=== PATIENT | female | born 1970 | race American Indian/Alaskan Native ===

== ENCOUNTER 2021-10-05 09:00 | Emergency (ER) | payer OTHER ==
--- NOTE | 2021-10-05 12:03 | XRay Report ---
XR hip 2-3V LT, XR ankle 3+V LT, XR foot 3+V LT INDICATION / CLINICAL INFORMATION: fall, left hip pain. COMPARISON: None available. FINDINGS: Spiral fracture of the left lateral malleolus extending to the level of the tibiofibular articulation . Medial malleolus is preserved. No hip fracture. No definite fracture. Impression: 1. Holder type B left lateral malleolus fracture. Signer Name: Pancho Elliott MD Signed: 10/05/2021 11:58 AM Workstation Name: [id number]
[2021-10-05] MEDS ORDERED: HYDROcodone/ACETAMINOPHEN 5-325 MG TAB PO ONE (12:08)
--- NOTE | 2021-10-05 12:14 | Emergency Department Report ---
ED Lower Extremity HPI - General Chief Complaint: Extremity Injury, Lower Stated Complaint: LEFT ANKLE INJURY Time Seen by Provider: 10/05/21 10:15 Source: patient Mode of arrival: Wheelchair Limitations: No Limitations - History of Present Illness Initial Comments: Patient is a 51-year-old female presents emergency room complaints of a fall that occurred last night. She states that she fell down approximately 7 steps. She states that she slipped and fell while coming down the steps. She states that her left leg fell back behind her and she did a split. She is complaining of left ankle pain and left hip pain. She denies any loss of consciousness, vomiting, vision changes, numbness, weakness, bowel or bladder incontinence. She denies any medication allergies. PMHx HTN, CHF, HLD. - Related Data Previous Rx's Medication Instructions Recorded Last Taken Type HYDROcodone/APAP 5-325 [Sutter 1 each PO Q6HR PRN #12 tablet 10/05/21 Unknown Rx 5/325] Ibuprofen [Motrin 600 MG tab] 600 mg PO Q8H PRN #20 tablet 10/05/21 Unknown Rx Losartan [Cozaar] 25 mg PO BID 30 Days #60 tablet 10/05/21 Unknown Rx Allergies Allergy/AdvReac Type Severity Reaction Status Date / Time No Known Allergies Allergy Verified 10/05/21 09:09 ED Review of Systems ROS: Stated complaint: LEFT ANKLE INJURY Other details as noted in HPI Comment: All other systems reviewed and negative ED Past Medical Hx - Past Medical History Previous Medical History?: No - Surgical History Past Surgical History?: No - Medications Home Medications: Home Medications Medication Instructions Recorded Confirmed Last Taken Type HYDROcodone/APAP 5-325 [Sutter 1 each PO Q6HR PRN #12 tablet 10/05/21 Unknown Rx 5/325] Ibuprofen [Motrin 600 MG tab] 600 mg PO Q8H PRN #20 tablet 10/05/21 Unknown Rx Losartan [Cozaar] 25 mg PO BID 30 Days #60 tablet 10/05/21 Unknown Rx ED Physical Exam - General Limitations: No Limitations General appearance: alert, in no apparent distress - Head Head exam: Present: atraumatic, normocephalic - Eye Eye exam: Present: normal appearance - ENT ENT exam: Present: mucous membranes moist - Extremities Exam Extremities exam: Present: other (edema and ttp to the left lateral malleolus, decreased ROM secondary to pain, mild ttp to the left lateral hip, neurovascularly intact) - Neurological Exam Neurological exam: Present: alert, oriented X3 - Psychiatric Psychiatric exam: Present: normal affect, normal mood - Skin Skin exam: Present: warm, dry, intact ED Course Vital Signs 10/05/21 10/05/21 09:08 13:31 Temperature 97.5 F L 97.6 F Pulse Rate 91 H 91 H Respiratory 20 18 Rate Blood Pressure 195/119 Blood Pressure 189/133 [Right] O2 Sat by Pulse 100 100 Oximetry ED Lower Extremity MDM - Lab Data Vital Signs 10/05/21 10/05/21 09:08 13:31 Temperature 97.5 F L 97.6 F Pulse Rate 91 H 91 H Respiratory 20 18 Rate Blood Pressure 195/119 Blood Pressure 189/133 [Right] O2 Sat by Pulse 100 100 Oximetry - Radiology Data Radiology results: report reviewed Ordering Physician: MARIANO BLANCHARD Date of Service: 10/05/21 Procedure(s): XR ankle 3+V LT Accession Number(s): [id number] cc: MARIANO BLANCHARD Fluoro Time In Minutes: XR hip 2-3V LT, XR ankle 3+V LT, XR foot 3+V LT INDICATION / CLINICAL INFORMATION: fall, left hip pain. COMPARISON: None available. FINDINGS: Spiral fracture of the left lateral malleolus extending to the level of the tibiofibular articulation. Medial malleolus is preserved. No hip fracture. No definite fracture. Impression: 1. Holder type B left lateral malleolus fracture. Signer Name: Pancho Elliott MD Signed: 10/05/2021 11:58 AM Workstation Name: [id number] Transcribed By: CS Dictated By: Pancho Elliott MD Electronically Authenticated By: Pancho Elliott MD Signed Date/Time: 10/05/21 1158 DD/ 1156 TD/TT: - Medical Decision Making Patient is a 51-year-old female presents emergency room complaints of a fall that occurred last night. She states that she fell down approximately 7 steps. She states that she slipped and fell while coming down the steps. She states that her left leg fell back behind her and she did a split. She is complaining of left ankle pain and left hip pain. She denies any loss of consciousness, vomiting, vision changes, numbness, weakness, bowel or bladder incontinence. She denies any medication allergies. PMHx HTN, CHF, HLD. on exam:edema and ttp to the left lateral malleolus, decreased ROM secondary to pain, mild ttp to the left lateral hip, neurovascularly intact. XR of the left ankle/foot/hip: 1. Holder type B left lateral malleolus fracture. Discussed all findings with patient. Patient placed in a [place] splint by manager machine remain neurovascularly intact and given crutches. Advised patient please take medication as prescribed. Please do not bear weight on the leg. Follow-up with orthopedic doctor. Return to emergency room for any new or worsening symptoms. Please take your blood pressure medication as prescribed by your doctor. Increase your water intake. Eat a low-sodium diet. Keep a blood pressure log. Follow-up with your primary care doctor regarding the elevation your blood pressure during today's visit. Patient states that she has not taken her blood pressure medication today. She states that she is out of her losartan. She reports that she is also take losartan 25 mg twice daily. Patient given refill for 30-day supply of her medication. The up-to-date medical literature does not recommend emergently low ering asymptomatic elevated blood pressure. Critical care attestation.: If time is entered above; I have spent that time in minutes in the direct care of this critically ill patient, excluding procedure time. ED Disposition Clinical Impression: Elevated blood pressure reading Left malleolar fracture Qualifiers: Encounter type: initial encounter Fracture type: closed Qualified Code(s): S82.892A - Other fracture of left lower leg, initial encounter for closed fracture Disposition: 01 HOME / SELF CARE / HOMELESS Is pt being admited?: No Does the pt Need Aspirin: No Condition: Stable Instructions: Tibial and Fibular Fractures Additional Instructions: please take medication as prescribed. Please do not bear weight on the leg. Follow-up with orthopedic doctor. Return to emergency room for any new or worsening symptoms. Please take your blood pressure medication as prescribed by your doctor. Increase your water intake. Eat a low-sodium diet. Keep a blood pressure log. Follow-up with your primary care doctor regarding the elevation your blood pressure during today's visit. Prescriptions: Losartan [Cozaar] 25 mg PO BID 30 Days #60 tablet Ibuprofen [Motrin 600 MG tab] 600 mg PO Q8H PRN #20 tablet PRN Reason: Pain, Moderate (4-6) HYDROcodone/APAP 5-325 [Sutter 5/325] 1 each PO Q6HR PRN #12 tablet PRN Reason: Pain , Severe (7-10) Referrals: PRIMARY CARE, [Primary Care Provider] - 3-5 Days JANICE BRANDT MD [Staff Physician] - 3-5 Days [facility] [Provider Group] - 3-5 Days Time of Disposition: 12:18 Print Language: SAUDI ARABIAN
[2021-10-05 13:33] VITALS: BP 189/133
== END 2021-10-05 13:33 | disposition home or self-care (01) ==
LOC: ED 09:00
DX: S82.892A Other fracture of left lower leg, initial encounter for closed fracture (principal); R03.0 Elevated blood-pressure reading, without diagnosis of hypertension; W01.0XXA Fall on same level from slipping, tripping and stumbling without subsequent striking against object, initial encounter; Y93.89 Activity, other specified; Y92.89 Other specified places as the place of occurrence of the external cause; Y99.8 Other external cause status
CPT/HCPCS: 99283